=== PATIENT | female | born 1985 | race Caucasian/White ===

== ENCOUNTER 2020-07-06 14:11 | Outpatient (CLI) | payer BC, SELFPAY ==
--- NOTE | 2020-07-06 14:23 | XRR_ITS ---
PROCEDURE INFORMATION: Exam: XR Right Foot Complete Exam date and time: 07/06/2020 2:43 PM Age: 34 years old Clinical indication: Pain; Foot; Right; Additional info: Foot pain TECHNIQUE: Imaging protocol: XR Right foot. Views: Frontal, lateral, and oblique views. COMPARISON: [facility] [place] Ankle RIGHT 3 views 02/04/2017 8:45 AM FINDINGS: Bones/joints: No acute bony abnormality identified. Fifth DIP joint fusion, normal variant. Soft tissues: Normal. XR/XR foot RT min 3V* [id number] IMPRESSION: No acute bony abnormality identified.
== END 2020-07-06 14:12 | disposition home or self-care (01) ==
LOC: RAD 14:16
PROVIDERS: Family Provider Electrodiagnostic Medicine; Visit Provider Podiatrist Foot & Ankle Surgery
DX: M79.671 Pain in right foot (principal)
CPT/HCPCS: 73630

== ENCOUNTER 2020-07-06 15:51 | Outpatient (CLI) | payer BC, SELFPAY | END 2020-07-06 15:52 | disposition home or self-care (01) | LOC: SPT 15:51 | PROVIDERS: Family Provider Electrodiagnostic Medicine; Visit Provider Podiatrist Foot & Ankle Surgery | DX: Z46.89 Encounter for fitting and adjustment of other specified devices (principal); M72.2 Plantar fascial fibromatosis; M76.71 Peroneal tendinitis, right leg | CPT/HCPCS: 97760; L4361 ==

== ENCOUNTER 2020-09-06 07:18 | Outpatient (CLI) | payer BC, SELFPAY ==
--- NOTE | 2020-09-06 07:15 | MR_ITS ---
WS: [id number] MRI RIGHT FOOT without CONTRAST. COMPARISON: 07/06/2020 and 02/04/2017 radiographs. Multiplanar, multisequence imaging is performed without contrast. History: Ankle and foot pain. Rule out peroneal tendon tear. Normal course of the peroneal tendons. Tendons are posterior to the distal fibula. There is no displa cement or subluxation from the retromalleolar groove. No increase fluid in the tendon sheath. Peronea l brevis appears to attach normally to the base of the fifth metatarsal. Normal course of the peronea l longus tendon. The peroneal tubercle is not significantly enlarged. On a very few sequences there i s some increased T2 signal within the peroneus brevis tendon just distal to the fibular tip. No marrow edema or fractures. The Achilles tendon is normal. The flexion and extension tendons are no rmal. No ligament tears appreciated. Small amount of increased fluid surrounding the os trigonum. MR/MR foot RT wo con* [id number] IMPRESSION: 1. Normal course of the peroneal tendons with no displacement or subluxation. 2. Very tiny amount of increased fluid signal associated with the peroneal lilliana vis tendon just distal to the fibular tip. Minimal tear is not excluded. There is no tenosynovitis. 3. No marrow edema or fracture. 4. Small amount of fluid surrounding the os trigonum.
== END 2020-09-06 07:19 | disposition home or self-care (01) ==
LOC: RADSHAW 07:21
PROVIDERS: PCP Electrodiagnostic Medicine; Visit Provider Podiatrist Foot & Ankle Surgery
DX: M79.671 Pain in right foot (principal); M25.571 Pain in right ankle and joints of right foot
CPT/HCPCS: 73718

== ENCOUNTER → 2020-12-07 09:48 | Outpatient (BNVA) | payer BC, SELFPAY | PROVIDERS: PCP Electrodiagnostic Medicine; Visit Provider Nurse Practitioner Women's Health | DX: N93.9 Abnormal uterine and vaginal bleeding, unspecified (principal); Z01.419 Encounter for gynecological examination (general) (routine) without abnormal findings; E03.9 Hypothyroidism, unspecified; G43.409 Hemiplegic migraine, not intractable, without status migrainosus | CPT/HCPCS: 84146; 84443; 84702; 85025; 88175 ==

== ENCOUNTER → 2020-12-08 08:34 | Outpatient (BNVA) | payer BC, SELFPAY | PROVIDERS: PCP Electrodiagnostic Medicine; Visit Provider Nurse Practitioner Women's Health | DX: N89.8 Other specified noninflammatory disorders of vagina (principal) | CPT/HCPCS: 76830 ==

== ENCOUNTER → 2021-01-27 09:33 | Outpatient (BNVA) | payer BC, SELFPAY | PROVIDERS: PCP Electrodiagnostic Medicine; Visit Provider Obstetrics & Gynecology | DX: N83.201 Unspecified ovarian cyst, right side (principal) | CPT/HCPCS: 76830 ==

== ENCOUNTER → 2021-02-03 08:16 | Outpatient (BNVA) | payer BC, SELFPAY | PROVIDERS: PCP Electrodiagnostic Medicine; Visit Provider Obstetrics & Gynecology | DX: Z20.822 Contact with and (suspected) exposure to COVID-19 (principal) | CPT/HCPCS: 87635 ==

== ENCOUNTER 2021-02-09 07:55 | Day surgery (SDC) | payer BC, SELFPAY ==
[2021-02-01 11:50] VITALS: BMI 33.9
[2021-02-09] VITALS (7 sets, daily range): BP systolic 119–133; BP diastolic 79–84; PULSE 64–97; RESP 12–20; TEMP 36.3–36.7; O2SAT 96–100
[2021-02-09 08:25] LABS: OR HCG Qualitative Urine Negative (Negative)
[2021-02-09] MEDS: sodium chloride 0.9% 500 ML IV (08:45)
[2021-02-09] MEDS: ketorolac 30 mg/mL INJ IVP (08:46)
[2021-02-09] MEDS: CELEcoxib 200 mg Capsule 400 MG PO (08:47)
[2021-02-09] MEDS: gabapentin 300 mg Capsule PO (08:47)
--- NOTE | 2021-02-09 09:12 | ANES.PREANE2 ---
Pre-Anesthetic Assessment Pre-Anesthetic Assessment: Height/Weight: Height 1.73 m Weight 101.151 kg Temp Pulse Resp BP Pulse Ox 98.0 F 97 18 133/84 98 02/09/21 08:11 02/09/21 08:11 02/09/21 08:11 02/09/21 08:11 02/09/21 08:11 Preop Diagnosis: menorrhagia, desires sterilization, complex ovarian cyst Proposed Procedure: Operation Date: 02/09/21 09:25 Proposed Procedures p Hysteroscopy w/ Myosure(Not Applicable) - Natividad Agarwal MD s Dilation And Curettage (D&C) with myosure(Not Applicable) - Natividad Agarwal MD s Laparoscopic bilateral Tubal Fulguration(Bilateral) - MD quicny German possible left Salpingo Oophorectomy (Open)(Left) - Natividad Agarwal MD Was Beta Grecia taken within 24 hours: N/A Was Clonidine taken within 24 hours: N/A Last intake: Intake Last Liquid Date 02/08/21 Last Liquid Time 21:00 Last Solid Date 02/08/21 Last Solid Time 17:30 Social: Social History: No alcohol and No tobacco Exam: Pre-Anes Outpt Exam: alert, oriented x 3, clear to auscultation bilaterally and regular rate & rhythm Airway: Submandibular: WNL Cervical ROM: WNL MP: 2 Dentition: Full Metabolic: Metabolic: Morbid obesity and Thyroid Anesthetic Plan: ASA status: 2 Anesthesia: General Risk of > 500 ml blood loss (7ml/kg in children): No PFSH Anesthesia PFSH: Medical History Hemiplegic migraine Hypothyroid No pertinent past medical history neghx: htn,dm,dvt/pe PCP: Dr. Schaefer Surgical History History of carpal tunnel surgery Right -- release of tendon Hx of breast augmentation 2018 Hx of section 2013 Family History Mother Diabetes Thyroid disease Grandmother Thyroid disease Maternal Grandfather Thyroid disease Maternal Denies family history of Colon cancer Ovarian cancer Heart disease Breast cancer Hypertension Uterine cancer Stroke Social History (Updated 02/01/21 @ 10:04 by LIONEL Vaz) Smoking and tobacco status: current every day smoker cigarettes Alcohol intake: never Data Anesthesia Other Labs: Laboratory Results - last 48 hr 02/09/21 08:23 Urine HCG, Qual Negative Cardiac Studies: No Data to Display
--- NOTE | 2021-02-09 09:19 | W.PM.OPSUD ---
Surgery/Procedure H&P Update DATE OF PROCEDURE: February 09, 2021 DATE H&P PERFORMED: 02/01/21 H&P UPDATE INFORMATION: I have reviewed H&P completed within last 30 days, I have examined patient prior to procedure and No changes to prior documentation PREOP DIAGNOSIS: menorrhagia, desires sterilization, complex ovarian cyst PLANNED PROCEDURE: Operation Date: 02/09/21 09:25 Proposed Procedures p Hysteroscopy w/ Myosure(Not Applicable) - MD quincy German Dilation And Curettage (D&C) with myosure(Not Applicable) - MD quincy German Laparoscopic bilateral Tubal Fulguration(Bilateral) - MD quincy German possible left Salpingo Oophorectomy (Open)(Left) - Natividad Agarwal MD endometrial ablation with novasure
[2021-02-09] MEDS: sodium chloride 0.9% 1,000 ML 30 ML IV (09:29)
[2021-02-09] MEDS: scopolamine 1.5 Patch 1 PATCH TRANSDERMA (09:29)
[2021-02-09] MEDS: midazolam 1 mg/mL INJ 2 mL 2 MG IVP (10:40)
--- NOTE | 2021-02-09 12:40 | P.OP_ITS ---
Operative Report Date of procedure: February 09, 2021 Pre-op Diagnosis: menorrhagia, desires sterilization, complex ovarian cyst Post-op diagnosis: same Post-op Findings: normal appearing uterus,tubes and ovaries. Septated uterus hysteroscopy deficit 90 ml Procedure Done: Laparoscopy with bilateral salpingectomy, hysteroscopy with endometrial ablation with novasure, iud removal Specimens removed/disposition: bilateral fallopian tubes Pathology: other Surgeon: Natividad Agarwal Anesthesia: General Estimated blood loss (mL): 5 IV fluids (mL): 1,000 Urine output (mL): 800 Complications: none Findings: Normal appearing uterus, tubes and ovaries, septated uterus Condition: stable Disposition: PACU Procedure: The patient was taken to the operating room where general anesthesia was administered and found to be adequate. She was prepped and draped in the normal sterile fashion in the dorsal lithotomy position in [facility]. A Collins catheter was placed. A weighted speculum was placed into the vagina and the anterior lip of the cervix grasped with a single-tooth tenaculum. The ZUMI uterine manipulator was placed. The gloves were changed and attention was turned to the abdomen. A 10 mm incision was made and carried down to the underlying layer of fascia. I was unable to enter through the fascia with the trocar. I ended up extending the incision and doing the entry by cutdown. The Yu trocar was placed under direct visualization. The abdomen was insufflated. 2 lateral incisions were made one on the right and one on the left they were 5 mm. They were placed by direct visualization. The bilateral tubes and ovaries were visualized. The right fallopian tube was grasped and elevated. Using the Voyant, the fallopian tube was cauterized and cut until it was removed. This was performed bilaterally in a similar fashion. The bilateral fallopian tubes were sent to pathology. The bilateral ovaries appeared extremely normal there was no obvious mass on the left ovary. The patient very strongly did not want to have her ovary removed and therefore I left the ovary because I was unable to determine where the mass was on that ovary. All instruments were removed from the abdomen. The fascia was closed with 0 Vicryl and the skin was closed with 3-0 Vicryl and skin glue. Attention was turned to the uterine portion. The ZUMI manipulator was removed. The cervix was mostly dilated however I dilated it to 14 Croatian. Hysteroscope was advanced into the endometrial cavity. There was a moderately sized septum at the fundus. There was no discernible tissue to remove. I then proceeded with the NovaSure. The uterine cavity length was 6 and the width was 4.3. I activated the NovaSure device and burn time was 36 seconds. All instruments were removed. The patient tolerated the procedure well. Sponge lap and needle counts were correct x3. The Collins catheter was removed. She was taken to the recovery room in stable condition.
--- NOTE | 2021-02-09 12:59 | PM.DCS ---
Discharge Providers Date of Discharge: February 09, 2021 Attending Provider at Discharge: Natividad Agarwal MD Primary Care Provider: Mike Schaefer DO Diagnoses at Discharge Discharge Diagnosis (1) Post-operative state: Status: Acute Reason for Visit Reason for Visit: hysteroscopy, d and c with myosure, laparoscopic b Hospital Course Hospital Course The patient was admitted for surgery. she did well postoperatively and was ready for discharge. Physical Exam Urinary Catheter Management^: Collins: Cath Placed During This Visit: yes, but has since been removed by the nurse Urinary Catheter Date of Insertion: 02/09/21 Urinary Catheter Time of Insertion: 11:10 Date Urinary Catheter Removed: 02/09/21 Time Urinary Catheter Discontinued: 12:05 Discharge Data Data Completed and Pending: Pending at discharge Category Date Time Status ES surgery / GI i mages Routine Exams 02/09/21 06:50 Taken Pathology: Surgic al [PTH] Routine Pth 02/09/21 12:31 Ordered Labs from last 24 hours 02/09/21 08:23 Urine HCG, Qual Negative Vitals: Last Vital Signs Temp 97.3 F L 02/09/21 12:40 Pulse 74 02/09/21 12:40 Resp 12 02/09/21 12:40 BP 133/79 02/09/21 12:40 Pulse Ox 100 02/09/21 12:40 Discharge Plan Discharge Patient Disposition: Home Condition: Stable Prescriptions: [place] 5-325 mg tablet 1 tab PO Q4H Qty: 30 RF: 0 Continued meloxicam 15 mg tablet 15 mg PO DAILY PRN (Reason: Pain) RF: 0 levothyroxine [Synthroid] 100 mcg tablet 100 mcg PO DAILY RF: 0 (DME) Sole Supports See Rx Instructions .ROUTE .MEDSUPPLY Qty: 1 RF: 0 trazodone 50 mg tablet 25 mg PO DAILY RF: 0 Mirena 20 mcg/24 hours (6 yrs) 52 mg intrauterine device intrauterine RF: 0 ibuprofen 800 mg tablet 800 mg PO Q8H PRN (Reason: pain) Qty: 30 RF: 2 Discharge Orders: Discharge Order (Routine); Ordered 02/09/21 Ordered By: Natividad Agarwal Discharge Attestations Time Spent in Discharge Care*: less than 30 min Quality Metrics Clinical Quality Measures During this hospital stay, did patient experience: None Coding Level of Care Code Acute Chg FW DC note Diagnoses Post-operative state Z98.890
[2021-02-09] MEDS: HYDROcodone-acetaminophen 5-325 mg Tablet 1 TAB PO (13:17)
--- NOTE | 2021-02-09 15:22 | ANE.PACU2 ---
Inpatient post-anesthesia follow up: Airway intact: Yes Vital signs: Temperature 97.5 F Pulse Rate 64 Respiratory Rate 18 Blood Pressure 119/80 Pulse Oximetry 100 Oxygen Delivery Me thod Room Air Oxygen Flow Rate Fraction of Inspir ed Oxygen Hydration adequate: Yes Nausea and vomiting: No Pain level: 1 Mental status: Baseline
== END 2021-02-09 14:00 | disposition home or self-care (01) ==
PROVIDERS: Anesthesiology; PCP Electrodiagnostic Medicine; Visit Provider Obstetrics & Gynecology
PROC: 0UDB8ZZ Extraction of Endometrium, Via Natural or Artificial Opening Endoscopic (ICD-10-PCS; CPT 58558; principal; 2021-02-09 09:25)
PROC: (CPT 58670; 2021-02-09 09:25)
PROC: 0UPD8HZ Removal of Contraceptive Device from Uterus and Cervix, Via Natural or Artificial Opening Endoscopic (ICD-10-PCS; CPT 58301; 2021-02-09 09:25)
DX: N92.0 Excessive and frequent menstruation with regular cycle (principal); Z30.2 Encounter for sterilization; E03.9 Hypothyroidism, unspecified; F17.210 Nicotine dependence, cigarettes, uncomplicated
CPT/HCPCS: 58563; 58661; 81025; 84703; 88302; 88305; 96374; 96375; J0131; J0690; J1100; J1200; J1885; J2250; J2405; J2704; J3010; J3490; J7030; J7040

== ENCOUNTER → 2021-03-08 09:37 | Outpatient (BNVA) | payer BC, SELFPAY | PROVIDERS: PCP Electrodiagnostic Medicine; Visit Provider Obstetrics & Gynecology | DX: E03.9 Hypothyroidism, unspecified (principal); N93.9 Abnormal uterine and vaginal bleeding, unspecified; N39.41 Urge incontinence; Z98.890 Other specified postprocedural states; R39.15 Urgency of urination; R35.0 Frequency of micturition; R53.83 Other fatigue; R61 Generalized hyperhidrosis; L67.8 Other hair color and hair shaft abnormalities | CPT/HCPCS: 81000; 83001; 83002; 84443; 85025; 87086 ==

== ENCOUNTER 2021-06-09 11:37 | Outpatient (CLI) | payer BC, SELFPAY | END 2021-06-09 11:38 | disposition home or self-care (01) | LOC: SPT 11:39 | PROVIDERS: PCP Electrodiagnostic Medicine; Visit Provider Podiatrist Foot & Ankle Surgery | DX: Z46.89 Encounter for fitting and adjustment of other specified devices (principal); M72.2 Plantar fascial fibromatosis; M76.71 Peroneal tendinitis, right leg | CPT/HCPCS: L3030 ==

== ENCOUNTER 2021-07-20 11:21 | Outpatient (CLI) | payer BC, SELFPAY | END 2021-07-20 11:22 | disposition home or self-care (01) | LOC: SPT 11:22 | PROVIDERS: PCP Electrodiagnostic Medicine; Visit Provider Podiatrist Foot & Ankle Surgery | DX: Z46.89 Encounter for fitting and adjustment of other specified devices (principal); M76.71 Peroneal tendinitis, right leg; M72.2 Plantar fascial fibromatosis | CPT/HCPCS: 97760; L4361 ==

== ENCOUNTER → 2022-01-11 10:15 | Outpatient (BNVA) | payer BC, SELFPAY | PROVIDERS: PCP Electrodiagnostic Medicine; Visit Provider Podiatrist Foot & Ankle Surgery | DX: M76.71 Peroneal tendinitis, right leg (principal); M79.671 Pain in right foot | CPT/HCPCS: 73590; 73610 ==

== ENCOUNTER → 2023-09-03 15:48 | Outpatient (BNVA) | payer BC, SELFPAY | PROVIDERS: PCP Family Medicine; Visit Provider Nurse Practitioner Women's Health | DX: N93.9 Abnormal uterine and vaginal bleeding, unspecified (principal); Z13.220 Encounter for screening for lipoid disorders | CPT/HCPCS: 82670; 83036; 83525; 84146; 84402 ==

== ENCOUNTER → 2024-07-06 07:53 | Outpatient (BNVA) | payer BC, SELFPAY | PROVIDERS: PCP Family Medicine; Visit Provider Nurse Practitioner Women's Health | DX: R10.2 Pelvic and perineal pain (principal) | CPT/HCPCS: 76830 ==

== ENCOUNTER → 2024-11-05 11:44 | Outpatient (BNVA) | payer BC, SELFPAY | PROVIDERS: PCP Family Medicine; Visit Provider Internal Medicine | DX: E03.9 Hypothyroidism, unspecified (principal) | CPT/HCPCS: 36415; 83516; 84439; 84443; 84480; 86376; 86800 ==

== ENCOUNTER 2025-01-07 12:28 | Outpatient (CLI) | payer BC, SELFPAY ==
[2025-01-07 13:37] LABS: Free T4 Free Thyroxine 1.38 ng/dL (0.82-1.77); Thyroid Stimulating Hormone 2.01 uIU/mL (0.27-4.20)
[2025-01-08 10:19] LABS: T3 Total 111 ng/dL (76-181)
== END 2025-01-07 12:29 | disposition home or self-care (01) ==
LOC: LAB 12:29
PROVIDERS: PCP Family Medicine; Visit Provider Internal Medicine
DX: E03.9 Hypothyroidism, unspecified (principal)
CPT/HCPCS: 36415; 84439; 84443; 84480

== ENCOUNTER 2025-04-22 15:09 | Outpatient (CLI) | payer BC, SELFPAY ==
[2025-04-22 16:41] LABS: Free T4 Free Thyroxine 1.33 ng/dL (0.82-1.77); Thyroid Stimulating Hormone 3.03 uIU/mL (0.27-4.20)
[2025-04-23 07:14] LABS: T3 Total 124 ng/dL (76-181)
== END 2025-04-22 15:10 | disposition home or self-care (01) ==
PROVIDERS: PCP Electrodiagnostic Medicine; Visit Provider Internal Medicine
DX: E03.9 Hypothyroidism, unspecified (principal)
CPT/HCPCS: 36415; 84439; 84443; 84480

== ENCOUNTER 2025-07-14 09:47 | Outpatient (CLI) | payer BC, SELFPAY | END 2025-07-14 09:48 | disposition home or self-care (01) | PROVIDERS: PCP Family Medicine; Visit Provider Internal Medicine | DX: E03.9 Hypothyroidism, unspecified (principal); N99.85 Post endometrial ablation syndrome; F32.81 Premenstrual dysphoric disorder; L68.0 Hirsutism | CPT/HCPCS: 36415; 82670; 83001; 83002; 84439; 84443 ==